=== PATIENT | male | born 1990 | race African-American/Black ===

== ENCOUNTER 2022-06-15 11:35 | Emergency (ER) | payer MEDICAID ==
[~2022-06-15] VITALS: Ht 162.6 cm; Wt 68.0 kg
[2022-06-15 11:49] VITALS: BP 115/68
--- NOTE | 2022-06-15 14:41 | NUR ---
Pt states he does not "want help for stress" and "just needs to sleep". Provider at bedside made attempts to discuss anxiety-pt refused.
== END 2022-06-15 16:23 | disposition home or self-care (01) ==
LOC: ER 11:36
DX: F43.9 Reaction to severe stress, unspecified (principal)
CPT/HCPCS: 99281